=== PATIENT | female | born 1995 | race Caucasian/White ===

== ENCOUNTER 2019-09-09 13:03 | Emergency (ER) | payer OTHER ==
[~2019-09-09] VITALS: Ht 162.6 cm; Wt 117.0 kg
[2019-09-09 13:18] VITALS: BP 128/74
--- NOTE | 2019-09-09 13:25 | NUR ---
PT AMBULATED TO BED 1.
--- NOTE | 2019-09-09 13:35 | NUR ---
24/F TO ED FOR COLD S/SX. PT REPORTS COUGH, CONGESTION, SUBJECTIVE FEVER AND CHLLS. DENIES N/V. LUNG SOUNDS CLEAR BILATERALLY. NO DISTRESS NOTED. BREATHING ON ROOM AIR WITHOUT DIFFICULTY OR DISTRESS. IN BED FOR MSE.
--- NOTE | 2019-09-09 15:37 | NUR ---
Patient discharged with v/s stable. Written and verbal after care instructions given and explained. Patient alert, oriented and verbalized understanding of instructions. Ambulatory with steady gait. All questions addressed prior to discharge. ID band removed. Patient advised to follow up with PMD. Rx of PROMETHAZINE/CODEINE given. Patient educated on indication of medication including possible reaction and side effects. Opportunity to ask questions provided and answered.
[2019-09-09 15:39] VITALS: BP 119/81
== END 2019-09-09 15:37 | disposition home or self-care (01) ==
LOC: MED 13:03
DX: B34.9 Viral infection, unspecified (principal)
CPT/HCPCS: 99283

== ENCOUNTER 2022-12-09 10:20 | Emergency (ER) | payer OTHER ==
[~2022-12-09] VITALS: Ht 157.5 cm; Wt 117.9 kg
[2022-12-09 10:46] VITALS: BP 149/93
--- NOTE | 2022-12-09 11:42 | NUR ---
TO ER BED 7
[2022-12-09 11:50] LABS: APPEARANCE,URINE CLOUDY (CLEAR); BILIRUBIN,URINE NEGATIVE (NEGATIVE); BLOOD, URINE 3+ (NEGATIVE); COLOR,URINE ORANGE (YELLOW); LEUKOCYTE ESTERASE ,URINE TRACE (NEGATIVE); NITRITE, URINE POSITIVE (NEGATIVE); UGLUCOSE NEGATIVE (NEGATIVE)
[2022-12-09] MEDS ORDERED: ONDANSETRON 4 MG ODT PO ONE (12:15)
[2022-12-09] MEDS ORDERED: DICYCLOMINE HCL LIQUID 20 MG, ALUMINUM HYD/MAG/SIMETHICONE 30 ML, LIDOCAINE VISCOUS 2% ... PO ONE ×3 (12:15)
[2022-12-09] MEDS ORDERED: ACETAMINOPHEN EXTRA STRENGTH 500 MG TAB PO ONE (12:15)
[2022-12-09] MEDS ORDERED: DICYCLOMINE HCL LIQUID 10 MG/5 ML UDC ONE (12:20)
[2022-12-09] MEDS ORDERED: ALUMINUM HYD/MAG/SIMETHICONE 30 ML UDC ONE (12:20)
[2022-12-09 12:29] LABS: RBC,URINE 80-100 /HPF (0-5); WBC,URINE 0-5 /HPF (0-5)
[2022-12-09 13:27] LABS: BASOPHILS # (AUTO) 0.1 K/uL (0.00-0.22); BASOPHILS % (AUTO) 1.1 % (0.0-2.0); EOSINOPHILS # (AUTO) 0.1 K/uL (0-0.4); EOSINOPHILS % (AUTO) 0.5 % (0.0-4.0); HEMATOCRIT 35.1 % (36-48); HEMOGLOBIN 11.4 g/dL (12.0-16.0); MEAN CORPUSCULAR HEMOGLOBIN 25 pg (27-31); MEAN CORPUSCULAR HGB CONC 33 g/dL (33-37); MONOCYTES # (AUTO) 0.5 K/uL (0.8-1.0); MONOCYTES % (AUTO) 3.9 % (1.7-9.3); NEUTROPHILS # (AUTO) 10.6 K/uL (1.8-7.7); NEUTROPHILS % (AUTO) 79.5 % (42.2-75.2); PLATELET COUNT (AUTO) 368 K/uL (140-450); RED BLOOD CELL COUNT(AUTO) 4.56 MIL/uL (4.20-5.40); RED CELL DISTRIBUTION WIDTH 16.6 % (11.6-13.7); WHITE BLOOD COUNT (AUTO) 13.3 K/uL (4.8-10.8)
[2022-12-09] MEDS ORDERED: METO-485 PO (13:51)
[2022-12-09] MEDS ORDERED: FAMO-90 PO (13:51)
[2022-12-09] MEDS ORDERED: CEPH-588 PO (13:51)
[2022-12-09] MEDS ORDERED: IBUP-1842 PO (13:51)
[2022-12-09 13:57] LABS: ALBUMIN 3.5 g/dL (3.4-5.0); CARBON DIOXIDE 26.4 mmol/L (21-32); CREATININE 0.7 mg/dL (0.6-1.3); TOTAL BILIRUBIN 0.3 mg/dL (0.0-1.0)
[2022-12-09 14:34] LABS: ANION GAP 14.7 (8-16); POTASSIUM 3.8 mmol/L (3.5-5.1)
--- NOTE | 2022-12-09 15:20 | NUR ---
Patient discharged with v/s stable. Written and verbal after care instructions given and explained. Patient alert, oriented and verbalized understanding of instructions. Ambulatory with steady gait. All questions addressed prior to discharge. ID band removed. Patient advised to follow up with PMD. Rx of KEFLEX, PEPCID, MOTRIN given. Patient educated on indication of medication including possible reaction and side effects. Opportunity to ask questions provided and answered.
--- NOTE | 2022-12-09 15:36 | NUR ---
DENIES ANY PAIN AT THIS TIME. PT D/C AT 4727
== END 2022-12-09 15:20 | disposition home or self-care (01) ==
LOC: MED 10:20
DX: K80.50 Calculus of bile duct without cholangitis or cholecystitis without obstruction (principal); N39.0 Urinary tract infection, site not specified; Z79.899 Other long term (current) drug therapy
CPT/HCPCS: 36415; 76705; 80053; 81001; 81025; 83690; 85025; 87086; 99284; Q0092; Q0162